=== PATIENT | male | born 1970 | race African-American/Black ===

== ENCOUNTER 2017-04-06 20:21 | Emergency (ER) | payer SELFPAY ==
[~2017-04-06] VITALS: Ht 175.3 cm; Wt 90.7 kg
[2017-04-06 20:21] VITALS: BP 132/69
--- NOTE | 2017-04-06 23:47 | NUR ---
NO ANSWER AFTER 5 CALLS; AWOL
== END 2017-04-06 23:48 | disposition left against medical advice (07) ==
LOC: EDSEX 20:24 → ER 20:24
DX: Z53.21 Procedure and treatment not carried out due to patient leaving prior to being seen by health care provider (principal)
CPT/HCPCS: A4606; Z7610

== ENCOUNTER 2023-10-09 07:32 | Emergency (ER) | payer OTHER ==
[~2023-10-09] VITALS: Ht 172.7 cm; Wt 90.7 kg
[2023-10-09] MEDS ORDERED: ONDANSETRON HCL/PF 4 MG/2 ML VIAL ONE (08:09)
[2023-10-09] MEDS ORDERED: MORPHINE SULFATE INJ 4 MG/ML DISP.SYRIN ONE ×3 (08:10→16:02)
[2023-10-09] MEDS ORDERED: FAMOTIDINE/PF INJ 20 MG/2 ML VIAL IV ONE (08:11)
[2023-10-09] MEDS: ONDANSETRON HCL/PF 4 MG/2 ML VIAL IVP ONE (08:15)
[2023-10-09] MEDS: MORPHINE SULFATE INJ 2 MG/ML DISP.SYRIN IV ONE ×3 (08:16→16:00)
[2023-10-09] MEDS: IV NS 0.9% 1,000 ML BAG IV ONE (08:18)
[2023-10-09 08:23] LABS: BASOPHILS % (AUTO) 0.6 % (0.0-2.0); EOSINOPHILS # (AUTO) 0.1 K/uL (0.0-0.7); EOSINOPHILS % (AUTO) 1.8 % (0.0-6.0); HEMATOCRIT 45 % (39-51); HEMOGLOBIN 14.8 g/dL (13.5-17.5); LYMPHOCYTES # (AUTO) 1.5 K/uL (0.8-4.8); LYMPHOCYTES % (AUTO) 20.7 % (20.0-44.0); MEAN CORPUSCULAR HEMOGLOBIN 30 PG (26.0-33.0); MEAN CORPUSCULAR HGB CONC 33 g/dl (31.0-36.0); MEAN CORPUSCULAR VOLUME 90 fL (80-96); MONOCYTES # (AUTO) 0.5 K/uL (0.1-1.30); MONOCYTES % (AUTO) 7.1 % (2.0-12.0); NEUTROPHILS % (AUTO) 69.8 % (43.0-81.0); PLATELET COUNT (AUTO) 344 K/uL (150-450); RED BLOOD CELL COUNT(AUTO) 4.99 MIL/uL (4.5-6.0); WHITE BLOOD COUNT (AUTO) 7.2 K/uL (4.3-11.0)
[2023-10-09 08:35] LABS: CALCIUM, SERUM 9.7 mg/dL (8.5-10.1); CREATININE 1.1 mg/dL (0.6-1.3); POTASSIUM 3.8 mmol/L (3.5-5.1)
[2023-10-09 08:40] LABS: ALBUMIN 4.1 g/dL (3.4-5.0); BILIRUBIN,DIRECT 0.1 mg/dL (0.0-0.2); BILIRUBIN,TOTAL 0.6 mg/dL (0.2-1.0); TOTAL PROTEIN, SERUM 8.7 g/dL (6.4-8.2)
[2023-10-09] MEDS: FAMOTIDINE/PF INJ 20 MG/2 ML VIAL IV ONE (08:40)
[2023-10-09 19:27] VITALS: BP 156/83; TEMP 98; O2SAT 97
== END 2023-10-09 23:22 | disposition short-term general hospital (02) ==
LOC: ER 07:39
DX: K56.7 Ileus, unspecified (principal); R10.32 Left lower quadrant pain; R10.33 Periumbilical pain; R10.13 Epigastric pain; F19.10 Other psychoactive substance abuse, uncomplicated; Z20.822 Contact with and (suspected) exposure to COVID-19
CPT/HCPCS: 99285; 74176; 96374; 76705; 96375; 96361; 87426; 93005; 96376; 85025; 80048; 83690; 80076; 36415; J2270 ×3; J3490; J2405; J7030; A4223